=== PATIENT | male | born 1960 | race Caucasian/White ===

== ENCOUNTER 2018-07-05 13:24 | Emergency (ER) | payer SELFPAY ==
[2018-07-05 13:48] VITALS: BP 194/110
--- NOTE | 2018-07-05 14:40 | UC ---
Lower Extremity/Ankle HPI - HPI Summary HPI Summary: 57 yo male presents with LEFT foot injury. He tells me that 2 nights ago he was in the bathroom and his left foot slipped and went forward impacting the wall. His left big toe curled underneath his foot. He has had pain here since. Has been elevating and icing the toe with mild relief. Pain is worse with weight bearing and ambulating. He is currently ambulating without assistance. Denies numbness or tingling. - History of Current Complaint Chief Complaint: UCLowerExtremity Stated Complaint: LT FOOT INJURY Time Seen by Provider: 07/05/18 14:38 Hx Obtained From: Patient Onset/Duration: Sudden Onset Severity Initially: Moderate Severity Currently: Moderate Pain Intensity: 7 Pain Scale Used: 0-10 Numeric Aggravating Factor(s): Standing, Ambulation Able to Bear Weight: Yes - Allergies/Home Medications Allergies/Adverse Reactions: Allergies Allergy/AdvReac Type Severity Reaction Status Date / Time No Known Allergies Allergy Verified 07/05/18 13:49 PMH/Surg Hx/FS Hx/Imm Hx Cardiovascular History: Hypertension - Surgical History Surgical History: Yes Surgery Procedure, Year, and Place: tonsils - Family History Known Family History: Positive: None - Social History Lives: With Family Alcohol Use: Daily Alcohol Amount: a few beers Substance Use Type: None Smoking Status (MU): Former Smoker Review of Systems All Other Systems Reviewed And Are Negative: Yes Constitutional: Positive: Negative Skin: Positive: Negative Respiratory: Positive: Negative Cardiovascular: Positive: Negative Neurovascular: Positive: Negative Musculoskeletal: Positive: Other: - Left great toe pain Neurological: Positive: Negative Psychological: Positive: Negative Physical Exam - Summary Physical Exam Summary: GENERAL: NAD. WDWN. No pain distress. SKIN: No rashes, sores, lesions, or open wounds. CHEST: No accessory muscle use. Breathing comfortably and in no distress. CV: Pulses intact PT and DP. Cap refill <2seconds MSK: TTP left great toe dorsal aspect with mild 1st MT TTP. FROM, pain worse with flexion. No edema or obvious bony deformities. NEURO: Alert. Sensations intact and symmetric B/L LEs PSYCH: Age appropriate behavior. Triage Information Reviewed: Yes Vital Signs: Initial Vital Signs Temp 99.0 F 07/05/18 13:45 Pulse 107 07/05/18 13:45 Resp 18 07/05/18 13:45 BP 194/110 07/05/18 13:45 Pulse Ox 100 07/05/18 13:45 Vital Signs Reviewed: Yes Lower Extremity Course/Dx - Course Course Of Treatment: XR: IMPRESSION: No fracture of the left foot is noted. Suspect strain/sprain of toe/foot. Discussed results with pt. He was provided a post-op shoe for comfort. Advised to RICE and take tylenol/ibuprofen. F/u if symptoms do not improve. - Differential Dx/Diagnosis Provider Diagnosis: Foot sprain Discharge - Sign-Out/Discharge Documenting (check all that apply): Patient Departure All imaging exams completed and their final reports reviewed: Yes - Discharge Plan Condition: Stable Disposition: HOME Patient Education Materials: Metatarsalgia (DC) Referrals: No Primary Care Phys,NOPCP [Primary Care Provider] - Additional Instructions: If you develop a fever, shortness of breath, chest pain, new or worsening symptoms - please call your PCP or go to the ED. Your blood pressure was high at todays visit. Please see your primary provider within 4 weeks for recheck and re-evaluation. Rest, Ice, and elevate your toe as much as possible May take 600mg ibuprofen every 6-8 hours as needed for pain Use the post-op shoe for comfort. - Billing Disposition and Condition Condition: STABLE Disposition: Home
== END 2018-07-05 14:54 | disposition home or self-care (01) ==
LOC: UCEAST 13:24
DX: S93.602A Unspecified sprain of left foot, initial encounter (principal); W22.09XA Striking against other stationary object, initial encounter; Y92.002 Bathroom of unspecified non-institutional (private) residence as the place of occurrence of the external cause; I10 Essential (primary) hypertension
CPT/HCPCS: 99211; G0463

== ENCOUNTER 2018-07-08 14:19 | Emergency (ER) | payer SELFPAY ==
[2018-07-08 14:46] VITALS: BP 171/91
--- NOTE | 2018-07-08 15:09 | UC ---
Lower Extremity/Ankle HPI - HPI Summary HPI Summary: 57 year old male presents or re-evaluation of an injury on his left 1st toe. Pt was seen on 07/05/18 for the same problem with symptoms of pain and swelling to the affected area. X-ray performed that day was unremarkable and pt was treated symptomatically with ice, elevation, and NSAIDs. Pt has noticed increased swelling and redness since this morning. Pain has remained the same since his last visit, about 5-6/10. Denies fevers and chills. - History of Current Complaint Chief Complaint: UCLowerExtremity Stated Complaint: RECHECK TOE INJURY Time Seen by Provider: 07/08/18 14:50 Hx Obtained From: Patient Pain Intensity: 5 - Allergies/Home Medications Allergies/Adverse Reactions: Allergies Allergy/AdvReac Type Severity Reaction Status Date / Time No Known Allergies Allergy Verified 07/08/18 14:47 Home Medications: Home Medications Ibuprofen [Advil] 200 mg PO Q6HR PRN 07/08/18 [History Confirmed 07/08/18] PMH/Surg Hx/FS Hx/Imm Hx Cardiovascular History: Hypertension - Surgical History Surgical History: Yes Surgery Procedure, Year, and Place: tonsils - Family History Known Family History: Positive: Hypertension - Social History Alcohol Use: Weekly Alcohol Amount: a few beers Substance Use Type: None Smoking Status (MU): Former Smoker Review of Systems All Other Systems Reviewed And Are Negative: Yes Constitutional: Negative: Fever, Chills Skin: Negative: Rash Respiratory: Positive: Negative Cardiovascular: Positive: Negative Gastrointestinal: Positive: Negative Neurovascular: Positive: Negative Musculoskeletal: Positive: Decreased ROM - Left 1st IP joint Neurological: Positive: Negative Physical Exam Triage Information Reviewed: Yes Appearance: Well-Appearing, Well-Nourished Vital Signs: Initial Vital Signs Temp 98.2 F 07/08/18 14:41 Pulse 77 07/08/18 14:41 Resp 18 07/08/18 14:41 BP 171/91 07/08/18 14:41 Pulse Ox 99 07/08/18 14:41 Vital Signs Reviewed: Yes Eyes: Positive: Conjunctiva Clear ENT: Positive: Hearing grossly normal Neck: Positive: Supple Respiratory: Positive: Lungs clear, No accessory muscle use Cardiovascular: Positive: RRR, No Murmur, Pulses Normal, Brisk Capillary Refill Musculoskeletal: Positive: ROM Limited @ - left 1st IP joint, Other: - Left 1st IP joint is tender to palpation with welling and background erythema Neurological Exam: Normal Neurological: Positive: Alert Skin Exam: Normal Lower Extremity Course/Dx - Course Course Of Treatment: X-ray from 07/05/18 was reviewed with pt. Pt advised no fracture was evident at the time. Pt denies any fevers, chills, or laceration in the area. Redness and swelling is likely secondary to trauma and will resolve with continuous elevation and compression of the area. Left 1st IP joint was wrapped with Coban dressing prior to pt leaving the office. Continue with elevation, ice, and NSAIDs use symptomatically. Should symptoms worsen pt referred to pantry goods worker for further evaluation. Discussed elevation BP. Pt to follow up with PCP for further evaluation and treatment. I performed history and physical on this patient and the above was assisted by the physician logistics assistant student. This represents my history and physical exam findings. -Dr Malloy - Differential Dx/Diagnosis Differential Diagnosis/HQI/PQRI: Bursitis, Cellulitis, Sprain, Strain Provider Diagnosis: Sprain of great toe of left foot, Elevated blood pressure reading Discharge - Sign-Out/Discharge Documenting (check all that apply): Patient Departure All imaging exams completed and their final reports reviewed: No Studies - Discharge Plan Condition: Improved Disposition: HOME Patient Education Materials: Sprain (ED), Hypertension (ED) Referrals: [facility] [Outside] [facility] [Outside] Adam Beach DPM [Doctor of Podiatric Medicine] - No Primary Care Phys,NOPCP [Primary Care Provider] - Additional Instructions: Ice, elevate, wrap as shown and use ibuprofen as needed for pain/swelling. Follow up with Podiatry -- call for an appt. Return if worse or other concerns. Your blood pressure remains elevated -- follow this up with a family doctor -- referral has been given OR you can see the [facility]. - Billing Disposition and Condition Condition: IMPROVED Disposition: Home
== END 2018-07-08 15:15 | disposition home or self-care (01) ==
LOC: UCEAST 14:19
DX: S93.602D Unspecified sprain of left foot, subsequent encounter (principal); I10 Essential (primary) hypertension; Z87.891 Personal history of nicotine dependence; X58.XXXD Exposure to other specified factors, subsequent encounter
CPT/HCPCS: 99211; G0463

== ENCOUNTER 2019-10-16 08:34 | Observation (INO) ==
[2019-10-16 09:24] LABS: ABS Basophils 0.1 10^3/ul (0-0.2); ABS Eosinophils 0.1 10^3/ul (0-0.6); ABS Lymphocytes 3.3 10^3/ul (1.0-4.8); ABS Monocytes 0.9 10^3/ul (0-0.8); ABS Neutrophils 6.2 10^3/ul (1.5-7.7); Eosinophil % 0.6 %; Hematocrit 39 % (42-52); Hemoglobin 13.4 g/dL (14.0-18.0); Lymphocyte % 31.2 %; Mean Corpuscular HGB Conc 35 g/dL (31-36); Mean Corpuscular Hemoglobin 31 pg (27-31); Mean Corpuscular Volume 90 fL (80-94); Mean Platelet Volume 7.1 fL (7.4-10.4); Nucleated Red Blood Cells % 0.1; Platelet Count 451 10^3/uL (150-450); Red Blood Count 4.34 10^6 /uL (4.18-5.48); Red Cell Distribution Width 13 % (10-15); White Blood Count 10.5 10^3/uL (3.5-10.8)
[2019-10-16 09:41] LABS: Albumin 4.2 g/dL (3.2-5.2); Albumin/Globulin Ratio 1.4 (1-3); BUN/Creatinine Ratio 17.3 (8-20); Calcium 8.9 mg/dL (8.6-10.3); EGFR African American 95.4 (>60); EGFR Non-African American 78.8 (>60); Globulin 2.9 g/dL (2-4); Magnesium 1.9 mg/dL (1.9-2.7); Potassium 4.2 mmol/L (3.5-5.0); Total Bilirubin 0.4 mg/dL (0.2-1.0); Total Protein 7.1 g/dL (6.4-8.9)
[2019-10-16 10:19] LABS: TSH Ultra Thyroid Stim Horm 5.23 mcIU/mL (0.34-5.60)
[2019-10-16] MEDS ORDERED: Cyanocobalamin INJ 1,000 MCG/ML VIAL 1 ML VIAL IM ONE (13:00)
[2019-10-16 13:20] LABS: C Reactive Protein 4.17 mg/L (<8.01)
[2019-10-16 14:40] LABS: Erythrocyte Sed Rate 22 mm/Hr (0-19)
[2019-10-16] MEDS ORDERED: Gadoteridol (CONTRAST) 279.3 MG/ML 10 ML IV ONE (16:12)
[2019-10-16 18:30] LABS: Urine Appearance Clear; Urine Bilirubin Negative (Negative); Urine Blood Negative (Negative); Urine Color Yellow; Urine Glucose Negative (Negative); Urine Ketones Negative (Negative); Urine Nitrite Negative (Negative); Urine Protein Negative (Negative); Urine Specific Gravity 1.014 (1.010-1.030); Urine Urobilinogen Negative (Negative)
[2019-10-16] MEDS ORDERED: Enoxaparin 40 MG/0.4 ML SYR SUBCUT SCH (21:00)
[2019-10-17 06:02] LABS: ABS Basophils 0.1 10^3/ul (0-0.2); ABS Eosinophils 0.2 10^3/ul (0-0.6); ABS Lymphocytes 3.1 10^3/ul (1.0-4.8); ABS Monocytes 0.7 10^3/ul (0-0.8); ABS Neutrophils 4.9 10^3/ul (1.5-7.7); Eosinophil % 1.9 %; Hematocrit 37 % (42-52); Hemoglobin 12.9 g/dL (14.0-18.0); Lymphocyte % 34.9 %; Mean Corpuscular HGB Conc 35 g/dL (31-36); Mean Corpuscular Hemoglobin 31 pg (27-31); Mean Corpuscular Volume 89 fL (80-94); Mean Platelet Volume 7.1 fL (7.4-10.4); Nucleated Red Blood Cells % 0.1; Platelet Count 389 10^3/uL (150-450); Red Blood Count 4.17 10^6 /uL (4.18-5.48); Red Cell Distribution Width 14 % (10-15); White Blood Count 8.9 10^3/uL (3.5-10.8)
[2019-10-17 06:36] LABS: Calcium 8.7 mg/dL (8.6-10.3); EGFR African American 97.7 (>60); EGFR Non-African American 80.7 (>60); Potassium 4.2 mmol/L (3.5-5.0)
[2019-10-17 16:39] VITALS: BP 138/76
== END 2019-10-17 16:55 | disposition home or self-care (01) ==
LOC: ED 08:34 → SSU 08:34
PROVIDERS: ADMIT Internal Medicine; ATTEND Internal Medicine

== ENCOUNTER 2020-06-19 09:02 | Inpatient (IN) ==
[2020-06-19] MEDS ORDERED: Ondansetron 4 mg VIAL 2 MG/ML 2 ml VIAL IV ONE (09:07)
[2020-06-19 09:27] LABS: ABS Basophils 0.1 10^3/ul (0-0.2); ABS Eosinophils 0.3 10^3/ul (0-0.6); ABS Lymphocytes 1.7 10^3/ul (1.0-4.8); ABS Monocytes 0.5 10^3/ul (0-0.8); ABS Neutrophils 4.7 10^3/ul (1.5-7.7); Eosinophil % 3.6 %; Hematocrit 34 % (42-52); Hemoglobin 11.7 g/dL (14.0-18.0); Lymphocyte % 23.5 %; Mean Corpuscular HGB Conc 35 g/dL (31-36); Mean Corpuscular Hemoglobin 30 pg (27-31); Mean Corpuscular Volume 86 fL (80-94); Mean Platelet Volume 6.6 fL (7.4-10.4); Platelet Count 325 10^3/uL (150-450); Red Blood Count 3.95 10^6 /uL (4.18-5.48); Red Cell Distribution Width 14 % (10-15); White Blood Count 7.2 10^3/uL (3.5-10.8)
[2020-06-19 09:48] LABS: Albumin 4.2 g/dL (3.2-5.2); Albumin/Globulin Ratio 1.5 (1-3); C Reactive Protein 17.98 mg/L (<8.01); Calcium 8.8 mg/dL (8.6-10.3); EGFR African American 99.7 (>60); EGFR Non-African American 82.4 (>60); Globulin 2.8 g/dL (2-4); Potassium 4.1 mmol/L (3.5-5.0); Total Bilirubin 0.6 mg/dL (0.2-1.0)
[2020-06-19] MEDS ORDERED: Senna TAB 8.6 mg TAB PO PRN (11:27)
[2020-06-19] MEDS: oxyCODONE/Acetamin 5/325 mg TAB PO PRN ×2 (11:35→17:23)
[2020-06-19] MEDS: Morphine 2 MG/ML SYRINGE IV PRN ×3 (11:42→19:46)
[2020-06-19] MEDS ORDERED: Heparin 5000 UNITS/ML 1 mL VIAL SUBCUT SCH (14:00)
[2020-06-19] MEDS ORDERED: Perflutren Lipid Microsphere 3 ML VIAL ONE (14:21)
[2020-06-20] MEDS: Morphine 2 MG/ML SYRINGE IV PRN ×3 (00:31→09:38)
[2020-06-20 06:09] LABS: BUN/Creatinine Ratio 20.4 (8-20); Calcium 8.8 mg/dL (8.6-10.3); EGFR African American 95.1 (>60); EGFR Non-African American 78.6 (>60); Potassium 3.8 mmol/L (3.5-5.0)
[2020-06-20 08:46] LABS: Hematocrit 31 % (42-52); Hemoglobin 10.4 g/dL (14.0-18.0)
[2020-06-20] MEDS ORDERED: Regadenoson 0.4 MG/5 ML SYRINGE ONE (09:23)
[2020-06-20] MEDS: NS 0.9% 1000 ml BAG 1,000 ML IV SCH ×2 (11:46→19:50)
[2020-06-20] MEDS ORDERED: Propofol 10 MG/ML 20 ML BTL ONE ×3 (14:14→14:45)
[2020-06-20] MEDS ORDERED: ceFAZolin 2 GM PREMIX 2 GM/50 ML BAG ONE (14:32)
[2020-06-20 14:37] LABS: Urine Appearance Clear; Urine Bilirubin Negative (Negative); Urine Blood Negative (Negative); Urine Color Yellow; Urine Glucose Negative (Negative); Urine Ketones Trace (Negative); Urine Nitrite Negative (Negative); Urine Protein 1+(30 mg/dL) (Negative); Urine Urobilinogen Negative (Negative)
[2020-06-20 14:39] LABS: Urine Bacteria Absent (Absent); Urine Red Blood Cell Trace(0-2/hpf) (Absent); Urine White Blood Cell Trace(0-5/hpf) (Absent)
[2020-06-20] MEDS ORDERED: Lidocaine 2% PF 5 ML VIAL ONE (14:42)
[2020-06-20] MEDS ORDERED: Midazolam 2 mg/2 ml VIAL 1 mg/ml 2 ml VIAL (2 mg) ONE (14:46)
[2020-06-20] MEDS ORDERED: fentaNYL 100 mcg/2 ml 50 MCG/ML VIAL ONE (14:47)
[2020-06-20] MEDS ORDERED: Dexmedetomidine 200 mcg/2 ml 2 ml VIAL (200 mcg) ONE (14:49)
[2020-06-20] MEDS ORDERED: Ketamine HCL 50 mg/ml 10 ml VIAL (500 MG) ONE (15:11)
[2020-06-20] MEDS ORDERED: Naloxone 0.4 mg VIAL 0.4 mg/ml 1 ml VIAL IV PRN (16:46)
[2020-06-20] MEDS ORDERED: Ondansetron 4 mg VIAL 2 MG/ML 2 ml VIAL IV PRN (16:46)
[2020-06-20] MEDS ORDERED: oxyCODONE/Acetamin 5/325 mg TAB PO PRN (16:46)
[2020-06-20] MEDS ORDERED: fentaNYL 100 mcg/2 ml 50 MCG/ML VIAL IV PRN (16:46)
[2020-06-20] MEDS ORDERED: DiMENhydriNATE IV 50 mg/ml 1 ml VIAL IV PUSH PRN (16:46)
[2020-06-20 17:18] LABS: Hematocrit 27 % (42-52); Hemoglobin 9.1 g/dL (14.0-18.0)
[2020-06-20] MEDS: oxyCODONE/Acetamin 5/325 mg TAB PO PRN (20:41)
[2020-06-20] MEDS: ceFAZolin 1 GM X 3 DOSES POST-OP Q8H (AddVan) IVPB SCH (23:58)
[2020-06-21] MEDS: NS 0.9% 1000 ml BAG 1,000 ML IV SCH (04:18)
[2020-06-21] MEDS: oxyCODONE/Acetamin 5/325 mg TAB PO PRN ×2 (04:33→08:52)
[2020-06-21 06:21] LABS: ABS Lymphocytes 1.2 10^3/ul (1.0-4.8); ABS Monocytes 0.7 10^3/ul (0-0.8); ABS Neutrophils 5.6 10^3/ul (1.5-7.7); Eosinophil % 0.5 %; Hematocrit 22 % (42-52); Hemoglobin 7.6 g/dL (14.0-18.0); Lymphocyte % 15.4 %; Mean Corpuscular HGB Conc 34 g/dL (31-36); Mean Corpuscular Hemoglobin 30 pg (27-31); Mean Corpuscular Volume 88 fL (80-94); Mean Platelet Volume 7.4 fL (7.4-10.4); Platelet Count 194 10^3/uL (150-450); Red Cell Distribution Width 15 % (10-15); White Blood Count 7.5 10^3/uL (3.5-10.8)
[2020-06-21 06:40] LABS: BUN/Creatinine Ratio 27.3 (8-20); Calcium 8.2 mg/dL (8.6-10.3); EGFR African American 83.2 (>60); EGFR Non-African American 68.8 (>60); Potassium 4.2 mmol/L (3.5-5.0)
[2020-06-21] MEDS: ceFAZolin 1 GM X 3 DOSES POST-OP Q8H (AddVan) IVPB SCH ×2 (07:55→15:27)
[2020-06-21] MEDS: Polyethylene Glycol 3350 17 GM PACKET PO PRN ×2 (08:52→21:14)
[2020-06-21] MEDS: Magnesium Hydroxide LIQ 30 ML UDC PO PRN ×2 (08:53→21:14)
[2020-06-21] MEDS ORDERED: Enoxaparin 40 MG/0.4 ML SYR SUBCUT SCH (12:00)
[2020-06-21 14:18] LABS: Hematocrit 21 % (42-52); Hemoglobin 7.2 g/dL (14.0-18.0)
[2020-06-22 04:44] LABS: Hematocrit 23 % (42-52); Hemoglobin 8.1 g/dL (14.0-18.0); Mean Platelet Volume 7.3 fL (7.4-10.4); Platelet Count 210 10^3/uL (150-450)
[2020-06-22 04:58] LABS: Anion Gap 7 mmol/L (2-11); BUN/Creatinine Ratio 25.4 (8-20); Blood Urea Nitrogen 29 mg/dL (6-24); CO2 Carbon Dioxide 23 mmol/L (22-32); Calcium 8.1 mg/dL (8.6-10.3); Chloride 100 mmol/L (101-111); EGFR African American 79.8 (>60); Glucose 100 mg/dL (70-100); Potassium 3.9 mmol/L (3.5-5.0); Sodium 130 mmol/L (135-145)
[2020-06-22 07:44] LABS: Urine Appearance Clear; Urine Bilirubin Negative (Negative); Urine Blood 1+ (Negative); Urine Color Yellow; Urine Glucose Negative (Negative); Urine Ketones Negative (Negative); Urine Nitrite Negative (Negative); Urine Protein Negative (Negative); Urine Specific Gravity 1.017 (1.010-1.030); Urine Urobilinogen Negative (Negative)
[2020-06-22 07:55] LABS: Urine Bacteria Absent (Absent); Urine Red Blood Cell 2+(6-10/hpf) (Absent); Urine White Blood Cell Trace(0-5/hpf) (Absent)
[2020-06-22] MEDS ORDERED: Lactulose 30 ml UDC PO ONE (08:59)
[2020-06-22 10:54] LABS: % Iron Saturation 11 % (15-55); Iron 29 ug/dL (50-212); Total Iron Binding Capacity 267 mcg/dL (250-450); Transferrin 191 mg/dL (203-362); Unsaturated Iron Binding < 252 ug/dL
[2020-06-22 11:15] LABS: Ferritin 296.9 ng/mL (24-336)
[2020-06-22 11:19] LABS: Vitamin B12 134 pg/mL (180-914)
[2020-06-22 11:31] VITALS: BP 109/55
[2020-06-22] MEDS ORDERED: Enoxaparin 40 MG/0.4 ML SYR SUBCUT SCH (12:00)
== END 2020-06-22 14:30 | DRG 308 ==
LOC: ED 09:02 → SSU 11:16 → UNDODISIN 06-22 12:17
PROVIDERS: ADMIT Internal Medicine; ATTEND Hospitalist

== ENCOUNTER 2020-06-22 12:34 | Inpatient (IN) ==
[2020-06-22] MEDS ORDERED: Senna TAB 8.6 mg TAB PO PRN (13:46)
[2020-06-22] MEDS ORDERED: Al Hydrox/Mg Hydrox/Simet LIQ 30 ML UDC PO PRN (13:46)
[2020-06-22] MEDS ORDERED: Polyethylene Glycol 3350 17 GM PACKET PO PRN (13:57)
[2020-06-22] MEDS ORDERED: Enoxaparin 40 MG/0.4 ML SYR SUBCUT SCH (14:00)
[2020-06-23 04:52] LABS: Urine Appearance Clear; Urine Bilirubin Negative (Negative); Urine Blood 3+ (Negative); Urine Color Yellow; Urine Glucose Negative (Negative); Urine Ketones Trace (Negative); Urine Nitrite Negative (Negative); Urine Protein Negative (Negative); Urine Specific Gravity 1.015 (1.010-1.030); Urine Urobilinogen Negative (Negative)
[2020-06-23 04:55] LABS: Urine Bacteria Absent (Absent); Urine Red Blood Cell 3+(>10/hpf) (Absent); Urine Squamous Epithelial Cell Present (Absent); Urine White Blood Cell Trace(0-5/hpf) (Absent)
[2020-06-23 06:18] LABS: ABS Eosinophils 0.2 10^3/ul (0-0.6); ABS Lymphocytes 1.3 10^3/ul (1.0-4.8); ABS Monocytes 0.7 10^3/ul (0-0.8); ABS Neutrophils 4.2 10^3/ul (1.5-7.7); Eosinophil % 3.7 %; Hematocrit 21 % (42-52); Hemoglobin 7.2 g/dL (14.0-18.0); Lymphocyte % 20.6 %; Mean Corpuscular HGB Conc 35 g/dL (31-36); Mean Corpuscular Hemoglobin 31 pg (27-31); Mean Corpuscular Volume 88 fL (80-94); Mean Platelet Volume 6.7 fL (7.4-10.4); Platelet Count 254 10^3/uL (150-450); Red Blood Count 2.37 10^6 /uL (4.18-5.48); Red Cell Distribution Width 14 % (10-15); White Blood Count 6.5 10^3/uL (3.5-10.8)
[2020-06-23 06:33] LABS: ALT 15 U/L (7-52); AST 38 U/L (13-39); Albumin 3.2 g/dL (3.2-5.2); Albumin/Globulin Ratio 1.3 (1-3); Alkaline Phosphatase 42 U/L (34-104); Anion Gap 6 mmol/L (2-11); BUN/Creatinine Ratio 22.1 (8-20); Blood Urea Nitrogen 21 mg/dL (6-24); CO2 Carbon Dioxide 25 mmol/L (22-32); Calcium 8.2 mg/dL (8.6-10.3); Chloride 102 mmol/L (101-111); EGFR African American 98.5 (>60); EGFR Non-African American 81.4 (>60); Globulin 2.5 g/dL (2-4); Glucose 88 mg/dL (70-100); Potassium 3.8 mmol/L (3.5-5.0); Sodium 133 mmol/L (135-145); Total Protein 5.7 g/dL (6.4-8.9)
[2020-06-23] MEDS ORDERED: diPHENhydraMINE 25 mg TAB PO ONE (10:38)
[2020-06-23 12:04] LABS: Total Iron Binding Capacity 269 mcg/dL (250-450); Transferrin 192 mg/dL (203-362)
[2020-06-23 12:05] LABS: % Iron Saturation 7 % (15-55); Iron < 20 ug/dL (50-212); Unsaturated Iron Binding < 254 ug/dL
[2020-06-23 12:30] LABS: Folate 18.17 ng/mL (>3.99)
[2020-06-23 12:31] LABS: Vitamin B12 174 pg/mL (180-914)
[2020-06-23] MEDS: Enoxaparin 40 MG/0.4 ML SYR SUBCUT SCH (13:34)
[2020-06-23 20:51] LABS: Urine Appearance Cloudy; Urine Bilirubin Negative (Negative); Urine Blood 1+ (Negative); Urine Color Yellow; Urine Glucose Negative (Negative); Urine Ketones Trace (Negative); Urine Nitrite Negative (Negative); Urine Protein Negative (Negative); Urine Specific Gravity 1.015 (1.010-1.030); Urine Urobilinogen Negative (Negative)
[2020-06-23 20:52] LABS: Urine Bacteria Absent (Absent); Urine Red Blood Cell 2+(6-10/hpf) (Absent); Urine White Blood Cell Trace(0-5/hpf) (Absent)
[2020-06-24] MEDS ORDERED: Cyanocobalamin INJ 1,000 MCG/ML VIAL 1 ML VIAL IM ONE (08:26)
[2020-06-24 09:42] LABS: ABS Eosinophils 0.3 10^3/ul (0-0.6); ABS Lymphocytes 1.3 10^3/ul (1.0-4.8); ABS Monocytes 0.9 10^3/ul (0-0.8); ABS Neutrophils 5.9 10^3/ul (1.5-7.7); Eosinophil % 3.9 %; Hematocrit 32 % (42-52); Hemoglobin 10.8 g/dL (14.0-18.0); Lymphocyte % 15.1 %; Mean Corpuscular HGB Conc 34 g/dL (31-36); Mean Corpuscular Hemoglobin 30 pg (27-31); Mean Corpuscular Volume 90 fL (80-94); Mean Platelet Volume 7.2 fL (7.4-10.4); Platelet Count 293 10^3/uL (150-450); Red Blood Count 3.61 10^6 /uL (4.18-5.48); Red Cell Distribution Width 15 % (10-15); White Blood Count 8.3 10^3/uL (3.5-10.8)
[2020-06-24] MEDS: Enoxaparin 40 MG/0.4 ML SYR SUBCUT SCH (12:35)
[2020-06-24] MEDS: Magnesium Hydroxide LIQ 30 ML UDC PO PRN (19:36)
[2020-06-24] MEDS: Senna TAB 8.6 mg TAB PO SCH (20:20)
[2020-06-25 07:17] LABS: Hematocrit 32 % (42-52); Hemoglobin 10.5 g/dL (14.0-18.0)
[2020-06-25] MEDS: Enoxaparin 40 MG/0.4 ML SYR SUBCUT SCH (12:06)
[2020-06-25] MEDS: Senna TAB 8.6 mg TAB PO SCH (19:56)
[2020-06-26] MEDS: Enoxaparin 40 MG/0.4 ML SYR SUBCUT SCH (13:37)
[2020-06-26] MEDS: Senna TAB 8.6 mg TAB PO SCH (21:53)
[2020-06-27 06:31] LABS: ABS Eosinophils 0.3 10^3/ul (0-0.6); ABS Lymphocytes 1.7 10^3/ul (1.0-4.8); ABS Monocytes 0.9 10^3/ul (0-0.8); ABS Neutrophils 3.3 10^3/ul (1.5-7.7); Eosinophil % 4.7 %; Hematocrit 28 % (42-52); Hemoglobin 9.8 g/dL (14.0-18.0); Lymphocyte % 27.5 %; Mean Corpuscular HGB Conc 35 g/dL (31-36); Mean Corpuscular Hemoglobin 30 pg (27-31); Mean Corpuscular Volume 87 fL (80-94); Mean Platelet Volume 6.5 fL (7.4-10.4); Platelet Count 402 10^3/uL (150-450); Red Blood Count 3.22 10^6 /uL (4.18-5.48); Red Cell Distribution Width 14 % (10-15); White Blood Count 6.2 10^3/uL (3.5-10.8)
[2020-06-27 06:49] LABS: Albumin 3.5 g/dL (3.2-5.2); Albumin/Globulin Ratio 1.3 (1-3); BUN/Creatinine Ratio 18.3 (8-20); Calcium 8.9 mg/dL (8.6-10.3); EGFR African American 116.8 (>60); EGFR Non-African American 96.5 (>60); Globulin 2.6 g/dL (2-4); Potassium 4.1 mmol/L (3.5-5.0); Total Bilirubin 0.7 mg/dL (0.2-1.0); Total Protein 6.1 g/dL (6.4-8.9)
[2020-06-27] MEDS: Enoxaparin 40 MG/0.4 ML SYR SUBCUT SCH (13:09)
[2020-06-27] MEDS: Senna TAB 8.6 mg TAB PO SCH (20:43)
[2020-06-28] MEDS: Enoxaparin 40 MG/0.4 ML SYR SUBCUT SCH (12:00)
[2020-06-28] MEDS: Magnesium Hydroxide LIQ 30 ML UDC PO PRN (16:17)
[2020-06-28] MEDS: Senna TAB 8.6 mg TAB PO SCH (20:19)
[2020-06-29 05:28] VITALS: BP 147/86
== END 2020-06-29 11:15 | disposition home health service (06) | DRG 860 ==
LOC: PMRU 14:57
PROVIDERS: ADMIT Physical Medicine & Rehabilitation; ATTEND Physical Medicine & Rehabilitation

== ENCOUNTER 2021-04-25 10:28 | Inpatient (IN) ==
[~2021-04-25 10:28] MED LIST: Buffered Lidocaine 1% SYRIN 1 ml INTRADERM ONE; Famotidine IV 10 MG/ML 2 ml VIAL (20 mg) IV ONE; Lactated Ringers 1000 ml BAG 1,000 ML IV SCH
[2021-04-25] MEDS ORDERED: Famotidine IV 10 MG/ML 2 ml VIAL (20 mg) ONE (11:43)
[2021-04-25] MEDS ORDERED: ceFAZolin 2 GM PREMIX 2 GM/50 ML BAG ONE (11:43)
[2021-04-25 12:04] LABS: INR 1.04 (0.86-1.15)
[2021-04-25] MEDS ORDERED: Midazolam 5 mg/5 ml VIAL 1 mg/ml 5 ml VIAL (5 mg) ONE (12:34)
[2021-04-25] MEDS ORDERED: Propofol 10 MG/ML 20 ML BTL ONE ×2 (12:34→14:30)
[2021-04-25] MEDS ORDERED: Ketamine HCL 50 mg/ml 10 ml VIAL (500 MG) ONE (13:14)
[2021-04-25] MEDS ORDERED: Phenylephrine 40 mcg/mL 10mL (400mcg) SYRINGE ONE (13:28)
[2021-04-25] MEDS ORDERED: Naloxone 0.4 mg VIAL 0.4 mg/ml 1 ml VIAL IV PRN (13:52)
[2021-04-25] MEDS ORDERED: HYDROmorphone 1 MG/1 ML SYRINGE IV PRN (13:52)
[2021-04-25] MEDS ORDERED: Ondansetron 4 mg VIAL 2 MG/ML 2 ml VIAL IV PRN ×2 (13:52→14:10)
[2021-04-25] MEDS ORDERED: fentaNYL 100 mcg/2 ml 50 MCG/ML VIAL IV PRN (13:52)
[2021-04-25] MEDS ORDERED: diPHENhydraMINE 25 mg TAB PO PRN (14:10)
[2021-04-25] MEDS ORDERED: Ondansetron ODT 4 mg TAB 4 MG TAB PO PRN (14:10)
[2021-04-25] MEDS ORDERED: Magnesium Hydroxide LIQ 30 ML UDC PO PRN (14:10)
[2021-04-25] MEDS ORDERED: Lactulose 30 ml UDC PO PRN (14:10)
[2021-04-25] MEDS ORDERED: diPHENhydraMINE IV 50 MG/ML 1 ml VIAL (BENADRYL) IV PRN (14:10)
[2021-04-25] MEDS ORDERED: Morphine 2 MG/ML SYRINGE IV PRN (14:10)
[2021-04-25] MEDS ORDERED: fentaNYL 100 mcg/2 ml 50 MCG/ML VIAL ONE (15:20)
[2021-04-25] MEDS: Lactated Ringers 1000 ml BAG 1,000 ML IV SCH (16:35)
[2021-04-25] MEDS: ceFAZolin 1 GM ADVAN 1 GM in NS 0.9% 50 ML 50 ML IVPB SCH (20:25)
[2021-04-25] MEDS: Magnesium Hydroxide LIQ 30 ML UDC PO SCH (20:25)
[2021-04-26] MEDS: Lactated Ringers 1000 ml BAG 1,000 ML IV SCH (03:09)
[2021-04-26] MEDS: ceFAZolin 1 GM ADVAN 1 GM in NS 0.9% 50 ML 50 ML IVPB SCH ×2 (05:15→12:00)
[2021-04-26 06:28] LABS: Hematocrit 27 % (42-52); Hemoglobin 9.6 g/dL (14.0-18.0); Mean Platelet Volume 7.3 fL (7.4-10.4); Platelet Count 295 10^3/uL (150-450)
[2021-04-26 06:47] LABS: Calcium 7.9 mg/dL (8.6-10.3); eGFR CKD-EPI 91.1 (>60)
[2021-04-26] MEDS: Magnesium Hydroxide LIQ 30 ML UDC PO SCH (07:36)
[2021-04-26] MEDS ORDERED: Vitamin THERAPEUTIC TAB PO SCH (09:00)
[2021-04-26 11:58] VITALS: BP 127/73
[2021-04-27 14:57] LABS: % Iron Saturation 10 % (14 - 50); Total Iron Binding Capacity 251 mcg/dL (250 - 400)
== END 2021-04-26 13:45 | disposition home or self-care (01) | DRG 301 ==
LOC: AA 10:28 → INTOOBSV 10:28 → SSU 17:03
PROVIDERS: ADMIT Orthopaedic Surgery Adult Reconstructive Orthopaedic Surgery; ATTEND Orthopaedic Surgery Adult Reconstructive Orthopaedic Surgery

== ENCOUNTER 2021-07-26 07:30 | Inpatient (IN) ==
[~2021-07-26 07:30] MED LIST changes: -Famotidine IV 10 MG/ML 2 ml VIAL (20 mg) IV ONE; -Lactated Ringers 1000 ml BAG 1,000 ML IV SCH; +NS 0.9% 1000 ml BAG 1,000 ML IV SCH
[2021-07-26] MEDS ORDERED: ceFAZolin 2 GM PREMIX 2 GM/50 ML BAG ONE (08:48)
[2021-07-26] MEDS ORDERED: Phenylephrine IV 10 MG/ML 1 ml VIAL ONE (09:57)
[2021-07-26] MEDS ORDERED: Ondansetron 4 mg VIAL 2 MG/ML 2 ml VIAL IV PRN ×2 (09:58→14:52)
[2021-07-26] MEDS ORDERED: fentaNYL 100 mcg/2 ml 50 MCG/ML VIAL IV PRN (09:58)
[2021-07-26] MEDS ORDERED: Naloxone 0.4 mg VIAL 0.4 mg/ml 1 ml VIAL IV PRN (09:58)
[2021-07-26] MEDS ORDERED: Acetaminophen IV 1 GM/100ML 100 ML IV PRN (09:58)
[2021-07-26] MEDS ORDERED: Midazolam 2 mg/2 ml VIAL 1 mg/ml 2 ml VIAL (2 mg) ONE (09:59)
[2021-07-26] MEDS ORDERED: Lidocaine 2% PF 5 ML VIAL ONE (09:59)
[2021-07-26] MEDS ORDERED: Bupivacaine 0.5% PF 10 ML SDV VIAL INJ ONE (10:08)
[2021-07-26] MEDS ORDERED: Propofol 10 mg/ml 100 ML BTL 100 ML ONE ×2 (10:46→14:31)
[2021-07-26] MEDS ORDERED: ROPIVACAINE 5 MG/ML 30 ML BTL (0.5%) ONE (10:55)
[2021-07-26] MEDS ORDERED: Bupivacaine-MPF SPINAL 7.5 MG/ML - 2ML AMP ONE (10:57)
[2021-07-26] MEDS ORDERED: Propofol 10 MG/ML 20 ML BTL ONE ×2 (12:52→16:44)
[2021-07-26] MEDS ORDERED: EPHEDrine (Pressors) 50 MG/ML VIAL ONE (13:16)
[2021-07-26] MEDS ORDERED: Sterile Water for Inj 10 ML ONE (13:57)
[2021-07-26] MEDS ORDERED: Lidocaine 2% PF 10 ML AMP ONE ×2 (14:12→15:43)
[2021-07-26] MEDS ORDERED: Ondansetron 4 mg VIAL 2 MG/ML 2 ml VIAL ONE (14:18)
[2021-07-26] MEDS ORDERED: Dexamethasone IV 4 MG/ML VIAL 1 ml VIAL ONE (14:18)
[2021-07-26] MEDS ORDERED: Lactulose 30 ml UDC PO PRN (14:52)
[2021-07-26] MEDS ORDERED: Morphine 2 MG/ML SYRINGE IV PRN (14:52)
[2021-07-26] MEDS ORDERED: Ondansetron ODT 4 mg TAB 4 MG TAB PO PRN (14:52)
[2021-07-26] MEDS ORDERED: Magnesium Hydroxide LIQ 30 ML UDC PO PRN (14:52)
[2021-07-26] MEDS ORDERED: Ropivacaine 0.2% 2 MG/ML VIAL ONE (14:57)
[2021-07-26] MEDS ORDERED: Lactated Ringers 1000 ml BAG 1,000 ML IV SCH (15:00)
[2021-07-26] MEDS ORDERED: HYDROmorphone 0.5 MG/0.5 ML SYRINGE ONE (15:13)
[2021-07-26] MEDS ORDERED: ceFAZolin VIAL VIAL ONE (15:31)
[2021-07-26] MEDS ORDERED: Acetaminophen IV 1 GM/100ML 100 ML IV ONE (17:12)
[2021-07-26] MEDS ORDERED: HYDROmorphone 1 MG/1 ML SYRINGE ONE (17:52)
[2021-07-26] MEDS: HYDROmorphone 1 MG/1 ML SYRINGE IV PRN ×3 (17:55→18:07)
[2021-07-26] MEDS ORDERED: Ropivacaine (OR use only) 2 MG/ML 10 ML ONE (18:10)
[2021-07-26] MEDS: Magnesium Hydroxide LIQ 30 ML UDC PO SCH (21:37)
[2021-07-26] MEDS: ceFAZolin VIAL 1 GM in NS 0.9% 50 ML 50 ML IVPB SCH (22:50)
[2021-07-27 05:04] LABS: Hematocrit 26 % (42-52); Hemoglobin 9.2 g/dL (14.0-18.0); Mean Platelet Volume 7.2 fL (7.4-10.4); Platelet Count 295 10^3/uL (150-450)
[2021-07-27 05:59] LABS: Potassium 4.3 mmol/L (3.5-5.0)
[2021-07-27 06:04] LABS: eGFR CKD-EPI 97.1 (>60)
[2021-07-27] MEDS: ceFAZolin VIAL 1 GM in NS 0.9% 50 ML 50 ML IVPB SCH ×2 (06:28→12:59)
[2021-07-27] MEDS: Magnesium Hydroxide LIQ 30 ML UDC PO SCH (08:34)
[2021-07-27] MEDS ORDERED: Vitamin THERAPEUTIC TAB PO SCH (09:00)
[2021-07-27 12:04] VITALS: BP 115/63
== END 2021-07-27 14:15 | disposition home or self-care (01) | DRG 301 ==
LOC: INTOOBSV 08:27 → AA 08:27 → OBSVTOIN 14:52 → INTOOBSV 14:53 → OBSVTOIN 14:53 → SSU 20:32
PROVIDERS: ADMIT Orthopaedic Surgery Adult Reconstructive Orthopaedic Surgery; ATTEND Orthopaedic Surgery Adult Reconstructive Orthopaedic Surgery